=== PATIENT | female | born 1970 | race Caucasian/White ===

== ENCOUNTER → 2017-11-02 15:23 | Outpatient (CLI) | payer BC ==
[2012-02-29 07:58] VITALS: BMI 31.3
== END | disposition home or self-care (01) ==
LOC: D.MRI 15:23
DX: M54.16 Radiculopathy, lumbar region (principal)

== ENCOUNTER → 2018-04-01 14:00 | Outpatient (CLI) | payer BC ==
[2012-02-29 07:58] VITALS: BMI 31.3
== END | disposition home or self-care (01) ==
LOC: D.MAMMO 14:00
DX: Z12.31 Encounter for screening mammogram for malignant neoplasm of breast (principal)

== ENCOUNTER → 2018-05-18 22:28 | Outpatient (CLI) | payer BC ==
[2012-02-29 07:58] VITALS: BMI 31.3
== END | disposition home or self-care (01) ==
LOC: D.MAMMO 10:30
DX: R92.8 Other abnormal and inconclusive findings on diagnostic imaging of breast (principal)

== ENCOUNTER 2019-06-19 08:00 | Outpatient (CLI) | payer BC ==
[2012-02-29 07:58] VITALS: BMI 31.3
== END 2019-06-19 23:59 | disposition home or self-care (01) ==
LOC: D.MAMMO 08:00
PROVIDERS: ATTEND Clinical Nurse Specialist Family Health
DX: Z12.31 Encounter for screening mammogram for malignant neoplasm of breast (principal)

== ENCOUNTER 2019-07-31 08:00 | Outpatient (CLI) | payer BC ==
[2012-02-29 07:58] VITALS: BMI 31.3
== END 2019-07-31 23:59 | disposition home or self-care (01) ==
LOC: D.MAMMO 08:00
PROVIDERS: ATTEND Clinical Nurse Specialist Family Health
DX: R92.8 Other abnormal and inconclusive findings on diagnostic imaging of breast (principal)

== ENCOUNTER 2020-11-28 16:15 | Outpatient (CLI) | payer BC ==
[2012-02-29 07:58] VITALS: BMI 31.3
== END 2020-11-28 16:45 | disposition home or self-care (01) ==
LOC: D.MAMMO 16:15
PROVIDERS: ATTEND Clinical Nurse Specialist Family Health
DX: Z12.31 Encounter for screening mammogram for malignant neoplasm of breast (principal)